=== PATIENT | male | born 1995 | race African-American/Black ===

== ENCOUNTER 2016-12-20 21:16 | Emergency (ER) | payer OTHER | END 2016-12-20 21:23 | disposition home or self-care (01) | LOC: CFTX 21:16 | DX: M25.552 Pain in left hip (principal); F17.200 Nicotine dependence, unspecified, uncomplicated | CPT/HCPCS: 99283 ==

== ENCOUNTER 2017-05-17 10:10 | Emergency (ER) | payer OTHER ==
[~2017-05-17] VITALS: Ht 177.8 cm; Wt 65.9 kg
== END 2017-05-17 11:24 | disposition home or self-care (01) ==
LOC: CED 10:10 → CFTX 10:10
DX: K08.89 Other specified disorders of teeth and supporting structures (principal); F17.200 Nicotine dependence, unspecified, uncomplicated
CPT/HCPCS: 99283